=== PATIENT | female | born 1980 | race Caucasian/White ===

== ENCOUNTER 2020-12-14 16:21 | Emergency (ER) | payer OTHER, SELFPAY ==
[2020-12-14 16:51] LABS: Urine Blood 1+ (Negative); Urine Glucose Negative (Negative); Urine Protein 2+ (Negative); Urine Specific Gravity 1.025 (1.005-1.030)
[2020-12-14 17:01] LABS: Absolute Lymphocytes (CBC) 1.5 K/uL (0.7-4.9); Basophils % 0.3 % (0-1.3); Hematocrit 35.9 % (36.0-45.0); Lymphocytes % 14.9 % (15.3-44.8); MPV 6.6 fL (7.6-11.3); RBC Red Blood Cell Count 3.86 M/uL (3.86-4.86)
[2020-12-14 17:05] LABS: Urine Specific Gravity/Preg 1.025 (1.005-1.030)
[2020-12-14] MEDS ORDERED: KETOROLAC 30 MG/ML INJ ONE (17:05)
[2020-12-14 17:13] LABS: Urine Bacteria >50 /HPF (<20)
[2020-12-14 17:20] LABS: ALT/SGPT 23 U/L (12-78); AST/SGOT 13 U/L (15-37); Albumin 3.9 g/dL (3.4-5.0); Alkaline Phosphatase 64 U/L (45-117); BUN Blood Urea Nitrogen 8 mg/dL (7-18); Bicarbonate 30 mmol/L (21-32); Bilirubin Direct 0.1 mg/dL (0-0.2); Bilirubin Total 0.4 mg/dL (0.2-1.0); Glucose Level 93 mg/dL (74-106); Lipase 93 U/L (73-393); Potassium 3.3 mmol/L (3.5-5.1); Protein, Total 7.7 g/dL (6.4-8.2); Sodium Level 139 mmol/L (136-145)
--- NOTE | 2020-12-14 17:22 | RAD REPORT ---
EXAM DESCRIPTION: CTStone Protocol - 12/14/2020 5:12 pm CLINICAL HISTORY: right flank and abd pain COMPARISON: No comparisons TECHNIQUE: CT of the abdomen and pelvis was performed. All CT scans are performed using dose optimization technique as appropriate and may include automated exposure control or mA/KV adjustment according to patient size. FINDINGS: Lower chest: No acute abnormality. Liver: No acute abnormality or suspicious lesions. Biliary: No biliary ductal dilatation. Stomach: No significant focal abnormality. Duodenum: No significant focal abnormality. Pancreas: No significant abnormality. Spleen: No significant abnormality. Adrenal: No suspicious lesions. Kidney/ureter: Mild right-sided hydronephrosis and hydroureter. No definite ureteral calculi identifi ed. Retroperitoneum: No retroperitoneal adenopathy. Vascular: No aneurysm. Atherosclerosis . Bowel: No significant focal abnormality. Peritoneum: No ascites or free air. Bladder: Grossly unremarkable. Reproductive: No adnexal masses. Bones: No acute fracture. Other: n/a IMPRESSION: Mild right-sided hydroureteronephrosis but no obstructing stone is identified. This coul d be secondary to either infection or recently passed stone.
[2020-12-14] MEDS ORDERED: NA CHLORIDE 0.9% 250 ML ONE (17:24)
[2020-12-14] MEDS ORDERED: CIPROFLOXACIN 400mg IV 400 MG/200 ML BAG IV ONE (17:24)
[2020-12-14] MEDS ORDERED: MORPHINE 4 MG/ML SYR ONE (17:50)
--- NOTE | 2020-12-14 18:35 | ER ---
Nurse's Notes [facility] Name: Gayle Neri Age: 40 yrs Sex: Female : 1980 Arrival Date: 12/14/2020 Time: 16:22 Bed 15 Private MD: Diagnosis: UTI/ Urinary tract infection, site not specified Presentation: 12/14 16:26 Chief complaint: Patient states: c/o right flank pain and right sided abdominal pain X ld1 7 days. Coronavirus screen: At this time, the client does not indicate any symptoms associated with coronavirus-19. Ebola Screen: No symptoms or risks identified at this time. Initial Sepsis Screen: Does the patient meet any 2 criteria? No. Patient's initial sepsis screen is negative. Does the patient have a suspected source of infection? No. Patient's initial sepsis screen is negative. Risk Assessment: Do you want to hurt yourself or someone else? Patient reports no desire to harm self or others. Onset of symptoms was December 07, 2020. 16:26 Method Of Arrival: Ambulatory ld1 16:26 Acuity: MARIBELL 3 ld1 Triage Assessment: 16:28 General: Appears in no apparent distress. comfortable, Behavior is appropriate for age, ld1 anxious. 16:29 Pain: Complains of pain in posterior aspect of right lateral abdomen, anterior aspect ld1 of right lateral abdomen and right lower quadrant Pain does not radiate. Pain currently is 10 out of 10 on a pain scale. Quality of pain is described as stabbing, throbbing, Pain began gradually, 7 days ago Is continuous. EENT: No signs and/or symptoms were reported regarding the EENT system. Neuro: Level of Consciousness is awake, alert, obeys commands, Oriented to person, place, time, situation, Appropriate for age. Cardiovascular: Capillary refill < 3 seconds Patient's skin is warm and dry. Respiratory: Airway is patent Respiratory effort is even, unlabored, Respiratory pattern is regular, symmetrical. GI: Abdomen is flat, non-distended, Reports nausea, vomiting. : Reports burning with urination, pain urgency, urinary frequency. Derm: No signs and/or symptoms reported regarding the dermatologic system. Musculoskeletal: No signs and/or symptoms reported regarding the musculoskeletal system. 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 - Social history:: Smoking status: Patient reports the use of cigarette tobacco products, smokes one-half pack cigarettes per day, Patient/guardian denies using alcohol, Patient uses street drugs, heroin, heroin 2 days ago was last use.. - Family history:: not pertinent. - Hospitalizations: : No recent hospitalization is reported. Screenin:00 Abuse screen: Denies threats or abuse. Denies injuries from another. Nutritional jt3 screening: No deficits noted. Tuberculosis screening: No symptoms or risk factors identified. Fall Risk None identified. Assessment: 17:00 : Reports burning with urination, Pt. reports right flank pain and burning with jt3 urination that started on 12/13/2020. Pt. alert and oriented x4. Denies any abnormal bleeding. inability to void. 17:02 General: Pt. endorses using heroin "[employer]" via snorting every two days. . jt3 Vital Signs: 16:26 BP 137 / 84; Pulse 85; Resp 20; Temp 98.6(O); Pulse Ox 96% on R/A; Weight 70.31 kg; ld1 Height 5 ft. 6 in. (167.64 cm); Pain 10/10; 18:35 BP 109 / 62; Pulse 83; Resp 16; Pulse Ox 99% on R/A; jt3 16:26 Body Mass Index 25.02 (70.31 kg, 167.64 cm) ld1 ED Course: 16:22 Patient arrived in ED. as 16:28 Triage completed. ld1 16:29 Arm band placed on right wrist. ld1 16:33 Alessio Urban MD is Attending Physician. rn 16:40 Jv Reyes RN is Primary Nurse. jt3 16:54 Urine Culture Sent. mh5 16:54 Urine Microscopic Only Sent. mh5 16:54 Basic Metabolic Panel Sent. mh5 16:54 CBC with Diff Sent. mh5 16:54 Hepatic Function Sent. mh5 16:54 Lipase Sent. mh5 16:54 Initial lab(s) drawn, by me, sent to lab. Urine collected: clean catch specimen, clear. mh5 Inserted saline lock: 20 gauge in right antecubital area, using aseptic technique. Blood collected. 16:55 Patient has correct armband on for positive identification. Placed in gown. Bed in low mh5 position. Call light in reach. Side rails up X2. Warm blanket given. color television console monitor on. Pulse ox on. NIBP on. 17:00 No provider procedures requiring assistance completed. jt3 17:12 CT Stone Protocol In Process Unspecified. EDMS Administered Medications: 17:08 Drug: Ketorolac 30 mg Route: IVP; Site: right antecubital; jt3 19:07 Follow up: Response: No adverse reaction; Pain is decreased jt3 17:37 Drug: Cipro (ciprofloxacin) 400 mg Volume: 200 ml; Route: IVPB; Infused Over: 60 mins; jt3 Site: left antecubital; 19:07 Follow up: Response: No adverse reaction jt3 18:04 Drug: morphine 4 mg Route: IVP; Site: left antecubital; jt3 19:06 Follow up: Response: No adverse reaction; Pain is decreased jt3 Outcome: 18:34 Discharge ordered by . rn 19:05 Discharged to home ambulatory. jt3 19:05 Condition: improved 19:05 Discharge instructions given to patient, Instructed on discharge instructions, medication usage, Demonstrated understanding of instructions, medications, Prescriptions given X 1. 19:06 Patient left the ED. jt3 Addendum: 12/19/2020 10:44 Addendum: Culture Results: Positive urine culture. No further action required. Bacteria i w sensitive to prescribed antibiotic. Signatures: Dispatcher [employer] EDAimee Curiel Irene, Alessio Ling RN, MD MD rn Martinez, [facility] Mikala Kim RN RN ld1 Jv Reyes RN RN jt3
--- NOTE | 2020-12-14 18:35 | EDPHYS ---
Physician Documentation [facility] Name: Gayle Neri Age: 40 yrs Sex: Female : 1980 Arrival Date: 12/14/2020 Time: 16:22 Bed 15 Private MD: ED Physician Alessio Urban HPI: 12/14 16:50 This 40 yrs old Female presents to ER via Ambulatory with complaints of right rn flank pain. 16:50 The patient complains of pain in the right mid back. The pain radiates to the abdomen. rn Onset: The symptoms/episode began/occurred 10 day(s) ago. Modifying factors: The symptoms are alleviated by nothing. the symptoms are aggravated by nothing. Associated signs and symptoms: Pertinent positives: fever, urinary frequency, Pertinent negatives: hematuria, vomiting. Severity of pain: At its worst the pain was moderate in the emergency department the pain is unchanged. The patient has not experienced similar symptoms in the past. The patient has not recently seen a physician. Patient reports approximately 7 to 10 days of right flank pain. Denies history of kidney stones. Reports radiates around to the right lower quadrant. Reports subjective fever. States intermittent pain that comes and goes and can get rid of it. Slowly worsening.. 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 - Social history:: Smoking status: Patient reports the use of cigarette tobacco products, smokes one-half pack cigarettes per day, Patient/guardian denies using alcohol, Patient uses street drugs, heroin, heroin 2 days ago was last use.. - Family history:: not pertinent. - Hospitalizations: : No recent hospitalization is reported. ROS: 16:50 Constitutional: Positive for subjective fever Eyes: Negative for injury, pain, redness, rn and discharge, ENT: Negative for injury, pain, and discharge, Neck: Negative for injury, pain, and swelling, Cardiovascular: Negative for chest pain, palpitations, and edema, Respiratory: Negative for shortness of breath, cough, wheezing, and pleuritic chest pain, Abdomen/GI: Positive for right flank pain and right lower quadrant abdominal pain Back: Positive for right flank pain : Negative for injury, bleeding, discharge, and swelling, MS/Extremity: Negative for injury and deformity, Skin: Negative for injury, rash, and discoloration, Neuro: Negative for headache, weakness, numbness, tingling, and seizure. Exam: 16:50 Constitutional: This is a well developed, well nourished patient who is awake, alert, rn appears uncomfortable Head/Face: Normocephalic, atraumatic. Eyes: Periorbital areas with no swelling, redness, or edema. Cardiovascular: Regular rate and rhythm. No pulse deficits. Respiratory: No increased work of breathing, no retractions or nasal flaring. Abdomen/GI: Soft, mild right lower quadrant tenderness with guarding, no rebound Back: No spinal tenderness. No costovertebral tenderness. Full range of motion. Skin: Warm, dry MS/ Extremity: Pulses equal, no cyanosis. Neuro: Awake and alert, GCS 15 Vital Signs: 16:26 BP 137 / 84; Pulse 85; Resp 20; Temp 98.6(O); Pulse Ox 96% on R/A; Weight 70.31 kg; ld1 Height 5 ft. 6 in. (167.64 cm); Pain 10/10; 18:35 BP 109 / 62; Pulse 83; Resp 16; Pulse Ox 99% on R/A; jt3 16:26 Body Mass Index 25.02 (70.31 kg, 167.64 cm) ld1 MDM: 16:33 Patient medically screened. rn 18:34 Differential diagnosis: nephrolithiasis, pyelonephritis, UTI. Data reviewed: vital rn signs, nurses notes, lab test result(s), radiologic studies, CT scan, and as a result, I will discharge patient. Counseling: I had a detailed discussion with the patient and/or guardian regarding: the historical points, exam findings, and any diagnostic results supporting the discharge/admit diagnosis, lab results, radiology results, the need for outpatient follow up, to return to the emergency department if symptoms worsen or persist or if there are any questions or concerns that arise at home. Response to treatment: the patient's symptoms have markedly improved after treatment, and as a result, I will discharge patient. Special discussion: Based on the patient's Hx, exam, and Dx evaluation, there is no indication for emergent surgery or inpatient Tx. It is understood by the patient/guardian that if the Sx's persist or worsen they need to return immediately for re-evaluation. 12/14 16:37 Order name: Basic Metabolic Panel; Complete Time: 17:25 rn 12/14 16:37 Order name: CBC with Diff; Complete Time: 17:25 rn 12/14 16:37 Order name: Hepatic Function; Complete Time: 17:25 rn 12/14 16:37 Order name: Lipase; Complete Time: 17:25 rn 12/14 16:37 Order name: Urine Culture rn 12/14 16:37 Order name: Urine Microscopic Only; Complete Time: 17:25 rn 12/14 16:37 Order name: IV Saline Lock; Complete Time: 16:54 rn 12/14 16:37 Order name: Labs collected and sent; Complete Time: 16:54 rn 12/14 16:37 Order name: CT Stone Protocol; Complete Time: 17:25 rn 12/14 16:51 Order name: Urine Dipstick-Ancillary; Complete Time: 17:05 EDMS 12/14 16:55 Order name: Urine --Ancillary (enter results); Complete Time: 17:25 em1 12/14 16:37 Order name: Urine Dipstick-Ancillary (obtain specimen); Complete Time: 16:54 rn 12/14 16:37 Order name: Urine Test (obtain specimen); Complete Time: 16:54 rn Administered Medications: 17:08 Drug: Ketorolac 30 mg Route: IVP; Site: right antecubital; jt3 19:07 Follow up: Response: No adverse reaction; Pain is decreased jt3 17:37 Drug: Cipro (ciprofloxacin) 400 mg Volume: 200 ml; Route: IVPB; Infused Over: 60 mins; jt3 Site: left antecubital; 19:07 Follow up: Response: No adverse reaction jt3 18:04 Drug: morphine 4 mg Route: IVP; Site: left antecubital; jt3 19:06 Follow up: Response: No adverse reaction; Pain is decreased jt3 Disposition Summary: 12/14/20 18:34 Discharge Ordered Location: Home rn Problem: new rn Symptoms: have improved rn Condition: Stable rn Diagnosis - UTI/ Urinary tract infection, site not specified rn Followup: rn - With: Private Physician - When: As needed - Reason: Recheck today's complaints, Re-evaluation by your physician Discharge Instructions: - Discharge Summary Sheet rn - Urinary Tract Infection, Adult rn Forms: - Medication Reconciliation Form rn - Thank You Letter rn - Antibiotic clinical rn liaison - Prescription Opioid Use rn - Work release form sl2 Prescriptions: - Cipro 500 mg Oral Tablet - take 1 tablet by ORAL route every 12 hours for 10 days; 20 tablet; Refills: 0, rn Product Selection Permitted Signatures: Dispatcher [employer] EDAlessio Ureña MD MD rn Dibbern, Lauren, RN RN ld1 Jv Reyes RN RN jt3
[2020-12-14 19:20] VITALS: TEMP 98.6
[2020-12-14 19:21] VITALS: BP 109/62; O2SAT 99
== END 2020-12-14 19:06 | disposition home or self-care (01) ==
LOC: ER 16:21
DX: N39.0 Urinary tract infection, site not specified (principal); F17.210 Nicotine dependence, cigarettes, uncomplicated; Z88.0 Allergy status to penicillin
CPT/HCPCS: 36415; 74176; 76377; 80048; 80076; 81003; 81015; 81025; 83690; 85025; 87077; 87086; 87088; 87186; 99284; J0744; J7050

== ENCOUNTER 2022-08-16 11:54 | Emergency (ER) | payer SELFPAY ==
--- OUTSIDE RECORDS SUMMARY | 2022-08-16 12:21 | XMS REPORT | Continuity of Care Document ---
:1980 Author Organization [facility] t Address [address] [place] [id number] Care Team Providers Name Role Phone DR JIMMY BECERRA Attending Clinician Unavailable NAY WORTHINGTON Attending Clinician Unavailable DR JIMMY BECERRA Admitting Clinician Unavailable NAY WORTHINGTON Admitting Clinician Unavailable Problems This patient has no known problems. Allergies, Adverse Reactions, Alerts This patient has no known allergies or adverse reactions. Medications This patient has no known medications. Procedures This patient has no known procedures. Encounters Start End Encounter Admission Attending Care Care Encounter Source Date/Time Date/Time Type Type Clinicians Facility Department ID 2017-10-15 2017-10-15 Outpatient Bárbara BECERRA [facility] [id number] 15:48:00 [facility] 2017-10-15 Outpatient Bárbara WORTHINGTON [facility] [id number] 05:08:00 05:44:00 [facility] Results This patient has no known results.
[2022-08-16] MEDS ORDERED: LORazepam 2 MG/ML VIAL ONE (12:27)
[2022-08-16] MEDS ORDERED: NA CHLORIDE 0.9% 1,000 ML ONE (12:27)
[2022-08-16 12:40] LABS: Absolute Lymphocytes (CBC) 1.5 K/uL (0.7-4.9); Lymphocytes % 21.6 % (15.3-44.8); MCV 93.8 fL (80-100); MPV 6.7 fL (7.6-11.3); RBC Red Blood Cell Count 4.05 M/uL (3.86-4.86)
[2022-08-16 12:41] LABS: Specific Gravity 1.011 (1.005-1.030); Urine Bilirubin NEGATIVE (Negative); Urine Blood Negative (Negative); Urine Clarity Clear (Clear); Urine Color Colorless (Yellow); Urine Glucose NEGATIVE (Negative); Urine Protein NEGATIVE (Negative); Urine Urobilinogen Normal (Normal)
[2022-08-16 12:49] LABS: Specific Gravity 1.011 (1.005-1.030)
[2022-08-16 13:20] LABS: Bilirubin Total 0.3 mg/dL (0.2-1.0); Potassium 3.7 mEq/L (3.5-5.1); Protein, Total 7.6 g/dL (6.4-8.2)
--- NOTE | 2022-08-16 14:55 | RAD REPORT ---
EXAM DESCRIPTION: CT - Abdomen Pelvis W Contrast - 08/16/2022 1:50 pm CLINICAL HISTORY: ABD PAIN COMPARISON: No comparisons TECHNIQUE: Thin cut axial CT imaging of the abdomen and pelvis was performed following intravenous a dministration of 100 mL Isovue 300. Multiplanar reformats were generated and reviewed. All CT scans are performed using dose optimization technique as appropriate and may include automated exposure control or mA/KV adjustment according to patient size. FINDINGS: No suspicious findings in the lung bases. The liver, spleen, and pancreas show no suspicious findings. Gallbladder and biliary tree are also wi thout suspicious finding. Symmetric renal function is seen with no hydronephrosis or suspicious renal mass. No dilated bowel loops or bowel wall thickening. Appendix is unremarkable. [id number] stool bur den along the proximal large bowel. No free air, free fluid or inflammatory stranding. No hernia, mas s or bulky lymphadenopathy. Left adnexal region venous plexus engorgement. Engorgement of the venous plexus along the subserosal myometrium near the fundus as well. The urinary bladder is without significant finding. No suspicious bony findings. IMPRESSION: No acute intra-abdominal process. Imaging findings suggestive of pelvic venous congestion. Please correlate clinically.
[2022-08-16] MEDS ORDERED: NA CHLORIDE 0.9% 100 ML ONE (15:51)
[2022-08-16] MEDS ORDERED: CEFAZOLIN SODIUM 1 GM/VIAL ONE (15:51)
--- NOTE | 2022-08-16 17:00 | RAD REPORT ---
EXAM DESCRIPTION: US - Transvaginal Study Probe - 08/16/2022 3:45 pm CLINICAL HISTORY: ABD PAIN COMPARISON: Abdomen Pelvis W Contrast dated 08/16/2022 TECHNIQUE: Sonographic grayscale and color flow images of the pelvis were obtained through transab dominal and transvaginal approaches. FINDINGS: The uterus is normal in size, shape and echotexture. The uterus measures 10.4 centimeter i n length. Small nabothian cysts noted. The endometrial stripe measures 8 mm, within normal for premenopausal state. Left ovary is normal in size, shape and echotexture. It measures 2.6 x 2.6 x 2.5 centimeters. Right o vary was not visualized. No suspicious ovarian or parovarian masses or other lesion. Prominent venous plexus in the left adnexal region and uterine wall. Normal Doppler blood flow was demonstrated to the left ovary. No significant pelvic ascites. IMPRESSION: Prominent venous plexus in the left adnexal region and uterine wall. Please correlate cl inically for signs/symptoms of pelvic congestion. Endometrial stripe measures up to 8 millimeter in thickness, within normal limits if the patient is p remenopausal. Evaluation is limited by nonvisualization of the right ovary.
--- NOTE | 2022-08-16 17:04 | EDPHYS ---
Physician Documentation [facility] Name: Gayle Jordan Age: 42 yrs Sex: Female : 1980 Arrival Date: 08/16/2022 Time: 11:54 Bed 7 Private MD: ED Physician Alessio Urban HPI: 08/16 13:01 This 42 yrs old Female presents to ER via Ambulatory with complaints of Anxiety, kb Vaginal Pain. 13:02 The patient presents with abdominal pain in the lower abdomen. Onset: The kb symptoms/episode began/occurred 1 month(s) ago. The symptoms do not radiate. Associated signs and symptoms: none. The symptoms are described as constant. Modifying factors: The symptoms are alleviated by nothing, the symptoms are aggravated by nothing. Severity of pain: At its worst the pain was moderate in the emergency department the pain is unchanged. The patient has not experienced similar symptoms in the past. The patient has not recently seen a physician. Pt reports suprapubic pain and vaginal pain for one month that has gotten worse over the last week. Denies vaginal discharge. States she is concerned about an STI. Also complains of anxiety that has been progressively gotten worse. States she used to be medicated, but has been off of medications for a long time. States she has had a lot of anxiety about son's health and can't handle it anymore. Denies suicidal or homicidal ideations. 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 - Social history:: Smoking status: Patient reports the use of cigarette tobacco products, smokes one-half pack cigarettes per day. ROS: 12:56 Constitutional: Negative for fever, chills, and weight loss. kb 12:56 Abdomen/GI: Positive for abdominal pain, Negative for nausea, vomiting, and diarrhea. 12:56 : Positive for vaginal pain. 12:56 Psych: Positive for anxiety. 12:56 All other systems are negative. Exam: 13:00 Constitutional: This is a well developed, well nourished patient who is awake, alert, kb and in no acute distress. Head/Face: Normocephalic, atraumatic. ENT: Moist Mucous membranes Cardiovascular: Regular rate and rhythm with a normal S1 and S2. No gallops, murmurs, or rubs. No pulse deficits. Respiratory: Respirations even and unlabored. No increased work of breathing. Talking in full sentences Skin: Warm, dry with normal turgor. Normal color. MS/ Extremity: Pulses equal, no cyanosis. Neurovascular intact. Full, normal range of motion. Neuro: Awake and alert, GCS 15, oriented to person, place, time, and situation. Moves all extremities. Normal gait. 13:00 Abdomen/GI: Inspection: abdomen appears normal, Bowel sounds: normal, Palpation: soft, in all quadrants, moderate abdominal tenderness, in the suprapubic area. 14:08 : Pelvic Exam: External exam: is normal, Speculum exam: normal findings, bimanual kb exam reveals normal findings, the nurse was present for the exam. Vital Signs: 12:00 BP 142 / 87; Pulse 98; Resp 18; Temp 98.1; Pulse Ox 100% on R/A; os 12:48 BP 129 / 90; Pulse 82; Pulse Ox 100% ; ap3 17:15 BP 102 / 63; Pulse 76; ap3 MDM: 11:57 Patient medically screened. kb 13:06 Differential diagnosis: non-specific abd pain, urinary tract infection, PID, STI. Data kb reviewed: vital signs, nurses notes. 17:03 Counseling: I had a detailed discussion with the patient and/or guardian regarding: the kb historical points, exam findings, and any diagnostic results supporting the discharge/admit diagnosis, lab results, radiology results, the need for outpatient follow up, a family practitioner, an OB/Gyne specialist, to return to the emergency department if symptoms worsen or persist or if there are any questions or concerns that arise at home. 08/16 12:13 Order name: CBC with Diff; Complete Time: 13:07 kb 08/16 12:13 Order name: CMP; Complete Time: 13:21 kb 08/16 12:13 Order name: Lipase; Complete Time: 13:21 kb 08/16 12:13 Order name: Test, Urine; Complete Time: 12:51 kb 08/16 12:13 Order name: Urinalysis w/ reflexes; Complete Time: 12:42 kb 08/16 12:52 Order name: Wet Prep; Complete Time: 14:34 kb 08/16 12:52 Order name: GC (GONORR/CHLAMYDIA) Probe kb 08/16 12:13 Order name: CT Abd/Pelvis - IV Contrast Only; Complete Time: 14:55 kb 08/16 14:58 Order name: US Transvaginal Study (Probe); Complete Time: 17:01 kb 08/16 12:13 Order name: IV Saline Lock; Complete Time: 12:30 kb 08/16 12:13 Order name: Labs collected and sent; Complete Time: 12:30 kb 08/16 12:52 Order name: Pelvic Exam Setup; Complete Time: 13:07 kb Administered Medications: 12:40 Drug: NS 0.9% IV 1000 ml Route: IV; Rate: 1 bolus; Site: right antecubital; ap3 17:15 Follow up: IV Status: Completed infusion ap3 12:40 Drug: Ativan IVP 1 mg Route: IVP; Site: right antecubital; ap3 17:15 Follow up: Response: No adverse reaction ap3 Disposition: 17:48 Co-signature as Attending Physician, Alessio rUban MD I reviewed the patient's care rn provided by the Advanced Practice Provider and agree with the diagnosis and treatment plan. Disposition Summary: 08/16/22 17:03 Discharge Ordered Location: Home kb Condition: Stable kb Diagnosis - Anxiety disorder, unspecified kb - Lower abdominal pain, unspecified kb Followup: kb - With: Emergency Department - When: As needed - Reason: Worsening of condition Followup: kb - With: Private Physician - When: 2 - 3 days - Reason: Recheck today's complaints, Continuance of care, Re-evaluation by your physician Discharge Instructions: - Discharge Summary Sheet kb - Pelvic Pain, Female, [id number] kb - Panic Attack, [id number] kb Forms: - Medication Reconciliation Form kb - Thank You Letter kb - Antibiotic Education kb - Prescription Opioid Use kb - [email or web address] kb Prescriptions: - Hydroxyzine HCl 25 mg Oral Tablet - take 1 tablet by ORAL route every 6 hours As needed; 16 tablet; Refills: 0, kb Product Selection Permitted Signatures: Dispatcher [employer] Aminta Russell, RADHA CASTRO-Alessio Barker MD MD rn Prokisch, Amanda RN RN ap3 Tessa Garcia RN RN os Corrections: (The following items were deleted from the chart) 12:06 12:06 PMHx: Lupus erythematosus; os os : PSHx: section; os os
--- NOTE | 2022-08-16 17:04 | ER ---
Nurse's Notes [facility] Name: Gayle Jordan Age: 42 yrs Sex: Female : 1980 Arrival Date: 08/16/2022 Time: 11:54 Bed 7 Private MD: Diagnosis: Anxiety disorder, unspecified;Lower abdominal pain, unspecified Presentation: 08/16 12:00 Chief complaint: Patient states: Anxiety attack. I almost had a nervous breakdown os yesterday. I also have suprapubic pain for the past 3 days. Coronavirus screen: Client denies travel out of the [place] in the last 14 days. At this time, the client does not indicate any symptoms associated with coronavirus-19. Ebola Screen: Patient negative for fever greater than or equal to 101.5 degrees Fahrenheit, and additional compatible Ebola Virus Disease symptoms. Initial Sepsis Screen: Does the patient meet any 2 criteria? No. Patient's initial sepsis screen is negative. Does the patient have a suspected source of infection? No. Patient's initial sepsis screen is negative. Risk Assessment: Do you want to hurt yourself or someone else? Patient reports no desire to harm self or others. Onset of symptoms was July 17, 2022. 12:00 Method Of Arrival: Ambulatory os 12:00 Acuity: MARIBELL 3 os Triage Assessment: 12:06 General: Appears distressed, Behavior is cooperative, appropriate for age, anxious. os Pain: Complains of pain in pelvis. Neuro: No deficits noted. Cardiovascular: No deficits noted. Respiratory: No deficits noted. GI: No deficits noted. 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 - Social history:: Smoking status: Patient reports the use of cigarette tobacco products, smokes one-half pack cigarettes per day. Screenin:41 [facility] ED Fall Risk Assessment (Adult) History of falling in the last 3 months, ap3 including since admission No falls in past 3 months (0 pts) Confusion or Disorientation No (0 pts) Intoxicated or Sedated No (0 pts) Impaired Gait No (0 pts) Mobility Assist Device Used No (0 pt) Altered Elimination No (0 pt). Abuse screen: Denies threats or abuse. Nutritional screening: No deficits noted. Tuberculosis screening: No symptoms or risk factors identified. Assessment: 12:41 General: Appears distressed, Behavior is crying. Pain: Complains of pain in pelvis. ap3 Neuro: Level of Consciousness is awake, alert, obeys commands, Oriented to person, place, time, situation. Cardiovascular: Patient's skin is warm and dry. Respiratory: Airway is patent Respiratory effort is even, unlabored, Respiratory pattern is regular, symmetrical. 13:31 Reassessment: Patient and/or family updated on plan of care and expected duration. Pain ap3 level reassessed. Patient is alert, oriented x 3, equal unlabored respirations, skin warm/dry/pink. General: Behavior is crying. 16:47 Reassessment: Patient and/or family updated on plan of care and expected duration. Pain ap3 level reassessed. Patient is alert, oriented x 3, equal unlabored respirations, skin warm/dry/pink. Vital Signs: 12:00 BP 142 / 87; Pulse 98; Resp 18; Temp 98.1; Pulse Ox 100% on R/A; os 12:48 BP 129 / 90; Pulse 82; Pulse Ox 100% ; ap3 17:15 BP 102 / 63; Pulse 76; ap3 ED Course: 11:55 Patient arrived in ED. am2 11:57 [facility] kb 11:57 Alessio Urban MD is Attending Physician. kb 12:06 Triage completed. os 12:11 Cherelle Agarwal, RN is Primary Nurse. ap3 12:42 Arm band placed on right wrist. ap3 12:42 Patient has correct armband on for positive identification. Bed in low position. Call ap3 light in reach. Side rails up X 1. Pulse ox on. NIBP on. Door closed. Noise minimized. Warm blanket given. 13:25 Radiology exam delayed due to pt getting pelvic exam done first, nurse will call when ls3 finished. 13:52 CT Abd/Pelvis - IV Contrast Only In Process Unspecified. EDMS 15:47 US Transvaginal Study (Probe) In Process Unspecified. EDMS 17:14 No provider procedures requiring assistance completed. IV discontinued, intact, ap3 bleeding controlled, No redness/swelling at site. Pressure dressing applied. Administered Medications: 12:40 Drug: NS 0.9% IV 1000 ml Route: IV; Rate: 1 bolus; Site: right antecubital; ap3 17:15 Follow up: IV Status: Completed infusion ap3 12:40 Drug: Ativan IVP 1 mg Route: IVP; Site: right antecubital; ap3 17:15 Follow up: Response: No adverse reaction ap3 Medication: 17:15 VIS not applicable for this client. ap3 Outcome: 17:03 Discharge ordered by MD. momin 17:15 Discharged to home ambulatory. ap3 17:15 Condition: good 17:15 Discharge instructions given to patient, Instructed on discharge instructions, follow up and referral plans. medication usage, Demonstrated understanding of instructions, follow-up care, medications, Prescriptions given X 1. 17:28 Patient left the ED. ap3 Signatures: Dispatcher [employer] EDMS Aminta Mcmullen, KATHYC TANNING WHEEL OPERATOR-Cherelle Romero Amanda, RN RN ap3 Naila James ls3 Tessa Garcia, RN RN os Corrections: (The following items were deleted from the chart) 12:06 12:06 PMHx: Lupus erythematosus; os os 12:06 12:06 PSHx: section; os os
[2022-08-16 17:36] VITALS: TEMP 98.1; O2SAT 100
[2022-08-16 17:37] VITALS: BP 102/63
[2022-08-19 03:23] LABS: C.trachomatis RNA,TMA Not Detected (Not Detected)
== END 2022-08-16 17:28 | disposition home or self-care (01) ==
LOC: ER 11:54
DX: R10.30 Lower abdominal pain, unspecified (principal); F41.9 Anxiety disorder, unspecified
CPT/HCPCS: 36415; 74177; 76830; 80053; 81003; 81025; 83690; 85025; 87210; 87490; 87590; 96361; 96374; 99284; J0690; J7030; Q9967

== ENCOUNTER 2022-12-22 13:53 | Emergency (ER) | payer SELFPAY ==
--- OUTSIDE RECORDS SUMMARY | 2022-12-22 13:55 | XMS REPORT | Continuity of Care Document ---
:1980 Author Organization [facility] t Address [address] [place] [address] [place] [id number] Care Team Providers Name Role Phone Bimal Pearson MD Attending Clinician BIMAL PEARSON Attending Clinician Unavailable DR JIMMY BECERRA Attending Clinician Unavailable NAY WORTHINGTON Attending Clinician Unavailable DR JIMMY BECERRA Admitting Clinician Unavailable NAY WORTHINGTON Admitting Clinician Unavailable Problems This patient has no known problems. Allergies, Adverse Reactions, Alerts Allergy Allergy Status Severity Reaction(s) Onset Inactive Treating Comm ents Source Name Type Date Date Clinician Penicill Propensi Active Anaphylaxis U nivers in ty to 06-20 ity of adverse 00:00: [place] reaction 00 Medical s Branch PENICILL DRUG Active Anaphylaxis Uni vers IN INGREDI 06-20 ity of 00:00: [place] 00 [facility] Branch Social History Social Habit Start Date Stop Date Quantity Comments Source Exposure to Not sure [facility] SARS-CoV-2 (event) Medica l Branch Sex Assigned At [birth year] [facility] 00:00:00 00:00:00 [facility] Smoking Status Start Date Stop Date Source Unknown if ever smoked [facility] Medications Ordered Filled Start Stop Current Ordering Indication Dosage Frequency Signature Comments Components Source Medication Medication Date Date Medication? Clinician (SIG) Name Name ondansetron 2020- No 4mg 4 mg, Univ ers (ZOFRAN-ODT 06-21 Oral, ity of ) 01:00: 23:59 ONCE, 1 [place] disintegrat 00 :00 dose, Tue Med ical ing tablet 06/20/20 at [facility] 4 mg 2000, Routine HYDROcodone 2020- No 1{tbl} 1 tablet, Univers -acetaminop 06-21 Oral, ity of hen (NORCO 01:00: 23:59 ONCE, 1 Jignesh as 5) 5-325 mg 00 :00 dose, Tue Med ical tablet 1 06/20/20 at [facility] h tablet 1999, TONY ibuprofen Yes [id number] 600mg Take 1 U nivers 600 mg 5- tablet by ity of tablet 00:00: mouth [place] 00 every 6 Medical (six) Branch hours as needed for Pain (scale 4-6). Hydrocodone No 4647 1{tbl} Take 1 U nivers -Acetaminop 06-20 tablet by it y of hen 7.5-300 00:00: 04:59 [place] mg tablet 00 :00 every 8 Medical (eight) Branch hours as needed for Pain (scale 4-6) for up to 7 days. Indication s: acute pain Vital Signs Vital Name Observation Time Observation Value Comments Source Systolic blood 2020-06-21 01:08:00 107 mm[Hg] [facility] Diastolic blood 2020-06-21 01:08:00 67 mm[facility]Hg[facility] Heart rate 2020-06-21 01:08:00 67 /min [facility] Respiratory rate 2020-06-21 01:08:00 18 /min [facility] Oxygen saturation in 2020-06-21 01:08:00 98 /min [facility] Arterial blood by [facility] Pulse oximetry Branch Body temperature 2020-06-20 23:26:00 36.56 Ciara [facility] Body weight 2020-06-20 23:26:00 65.772 kg [facility] Procedures Procedure Date / Time Performed Performing Clinician Sour e XR KNEE 3 VW RIGHT 2020-06-21 00:13:21 Bimal Pearson [facility] NOTICE OF PRIVACY 2020-06-20 23:14:41 Doctor Unassigned, No Univ [facility] CONSENT/REFUSAL FOR 2020-06-20 23:14:28 [facility] AND Name Medical Branch TREATMENT Encounters Start End Encounter Admission Attending Care Care Encounter Source Date/Time Date/Time Type Type Clinicians Facility Department ID 2022-04-19 2022-04-19 Outpatient [facility] [id number] Eliezer 15:16:33 15:16:33 [id number] F Pool 2020-06-20 2020-06-20 [facility] [id number] Univers 18:33:00 20:11:00 Bimal Kelley [id number] i ty [facility] [id number] [facility] [id number] [address] 2020-06-20 2020-06-20 [facility] [id number] Univers 18:33:00 18:33:00 BIMAL jackson [facility] 2017-10-15 2017-10-15 Outpatient Bárbara [facility] [id number] [place] [facility] 15:48:00 16:04:00 [facility] [place] 2017-10-15 2017-10-15 Outpatient Bárbara [place]INGTON [facility] [id number] [facility] 05:08:00 05:44:00 [facility] Results This patient has no known results.
[2022-12-22 14:25] LABS: Absolute Lymphocytes (CBC) 2.2 K/uL (0.7-4.9); Lymphocytes % 32.7 % (15.3-44.8); MCV 94.8 fL (80-100); MPV 6.6 fL (7.6-11.3); Platelets 334 thou/uL (152-406); RBC Red Blood Cell Count 4.01 M/uL (3.86-4.86)
[2022-12-22 14:40] LABS: Potassium 3.4 mEq/L (3.5-5.1)
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
[2022-12-22 17:19] VITALS: TEMP 98.4; O2SAT 100
[2022-12-22 17:23] VITALS: BP 112/62
== END 2022-12-22 17:06 | disposition home or self-care (01) ==
LOC: ER 13:53
DX: S32.029A Unspecified fracture of second lumbar vertebra, initial encounter for closed fracture (principal); S32.039A Unspecified fracture of third lumbar vertebra, initial encounter for closed fracture
CPT/HCPCS: 36415; 70450; 71260; 72125; 74177; 80048; 85025; 99284; Q9967